=== PATIENT | female | born 1975 | race Two or more races ===

== ENCOUNTER 2017-08-21 05:32 | Inpatient (IN) | payer SELFPAY ==
[2017-08-21] MEDS: IV RINGERS,LACTATED 1000ML 1,000 ML IV ×6 (06:04→23:21)
[2017-08-21] MEDS ORDERED: ONDANSETRON PF 4 MG/2 ML VIAL. (07:25)
[2017-08-21] MEDS ORDERED: OXYTOCIN 10 UNIT/ML VIAL. ×3 (07:25→09:18)
[2017-08-21] MEDS ORDERED: MORPHINE PF 5 MG/10 ML VIAL. (07:25)
[2017-08-21] MEDS ORDERED: fentaNYL PF VIAL 100 MCG/2 ML VIAL (07:25)
[2017-08-21] MEDS ORDERED: FAMOTIDINE 20 MG/2 ML VIAL (07:25)
[2017-08-21] MEDS: CITRIC ACID/SODIUM CITRATE 30 ML SOLUTION. PO (07:35)
[2017-08-21 07:51] LABS: HEMATOCRIT 32.5 % (36.0-47.0); HEMOGLOBIN 11.2 g/dL (12.0-15.5); MEAN CORPUSCULAR HEMOGLOBIN 30 pg (25-35); MEAN CORPUSCULAR HGB CONC 34 g/dL (31-37); MEAN CORPUSCULAR VOLUME 86 fL (79-100); PLATELET COUNT 144 x10^3/uL (140-400); RED BLOOD COUNT 3.78 x10^6/uL (3.50-5.40); RED CELL DISTRIBUTION WIDTH 15.4 % (11.5-14.5); WHITE BLOOD COUNT 6.2 x10^3/uL (4.0-11.0)
[2017-08-21] MEDS ORDERED: METOCLOPRAMIDE HCL 10 MG/2 ML VIAL. (08:45)
[2017-08-21] MEDS ORDERED: PHENYLEPHRINE in 0.9% NACL PF 1 MG/10 ML SYRINGE. IV (09:21)
[2017-08-21] MEDS ORDERED: 0.9 % SODIUM CHLORIDE 10 ML DISP.SYRIN. IV (09:30)
[2017-08-21] MEDS ORDERED: diphenhydrAMINE ORAL ELIXIR 12.5 MG/5 ML ML PO (09:30)
[2017-08-21] MEDS ORDERED: ZOLPIDEM 5 MG TABLET. PO (09:30)
[2017-08-21] MEDS ORDERED: MMR per PROTOCOL. MC (09:30)
[2017-08-21] MEDS ORDERED: SIMETHICONE 80 MG TAB.CHEW PO (09:30)
[2017-08-21] MEDS ORDERED: MAG HYDROX/ALUMINUM HYD/SIMETH 30 ML ORAL.SUSP PO (09:30)
[2017-08-21] MEDS ORDERED: OXYTOCIN 30 UNIT/500 ML PREMIX 500 ML IV (09:30)
[2017-08-21] MEDS: KETOROLAC 30 MG/ML INJ. IV (11:10)
[2017-08-21] MEDS: ONDANSETRON PF 4 MG/2 ML VIAL. IV (12:23)
[2017-08-21] MEDS ORDERED: ceFAZolin SODIUM 1 GM in IV DEXTROSE 5% 50 ML IV (14:00)
[2017-08-21] MEDS: IBUPROFEN 800 MG TABLET. PO ×2 (14:00→21:32)
[2017-08-21] MEDS: ceFAZolin SODIUM IV Push 1 GM VIAL. IVP ×2 (14:03→21:33)
[2017-08-21] MEDS: FERROUS SULFATE 325 MG TABLET. PO (17:00)
[2017-08-21] MEDS: oxyCODONE/APAP 5/325 1 TAB TABLET PO (21:32)
[2017-08-21] MEDS: DOCUSATE SODIUM 100 MG CAPSULE. PO (21:32)
[2017-08-22 05:41] LABS: ADD MAN DIFF? NO
[2017-08-22 05:47] LABS: BASO % 0 % (0-3); EOS # 0.1 x10^3/uL (0.0-0.7); EOS % 1 % (0-3); HEMATOCRIT 27.6 % (36.0-47.0); HEMOGLOBIN 9.5 g/dL (12.0-15.5); LYMPH # 1.4 x10^3/uL (1.0-4.8); LYMPH % 21 % (24-48); MEAN CORPUSCULAR HEMOGLOBIN 30 pg (25-35); MEAN CORPUSCULAR HGB CONC 34 g/dL (31-37); MEAN CORPUSCULAR VOLUME 86 fL (79-100); MONO # 0.4 x10^3/uL (0.0-1.1); MONO % 7 % (0-9); NEUT # 4.8 x10^3uL (1.8-7.7); NEUT % 71 % (31-73); PLATELET COUNT 132 x10^3/uL (140-400); RED BLOOD COUNT 3.22 x10^6/uL (3.50-5.40); RED CELL DISTRIBUTION WIDTH 15.4 % (11.5-14.5); WHITE BLOOD COUNT 6.7 x10^3/uL (4.0-11.0)
[2017-08-22] MEDS: IBUPROFEN 800 MG TABLET. PO ×3 (06:38→22:00)
[2017-08-22] MEDS: oxyCODONE/APAP 5/325 1 TAB TABLET PO ×4 (06:38→18:26)
[2017-08-22] MEDS: ceFAZolin SODIUM IV Push 1 GM VIAL. IVP (06:48)
[2017-08-22 07:38] LABS: RPR Non Reactive (Non Reactive)
[2017-08-22] MEDS: DOCUSATE SODIUM 100 MG CAPSULE. PO ×2 (09:16→17:48)
[2017-08-22] MEDS: FERROUS SULFATE 325 MG TABLET. PO ×2 (09:16→17:48)
[2017-08-22] MEDS: IV RINGERS,LACTATED 1000ML 1,000 ML IV (23:00)
[2017-08-23] MEDS: oxyCODONE/APAP 5/325 1 TAB TABLET PO ×4 (00:16→17:33)
[2017-08-23] MEDS: IBUPROFEN 800 MG TABLET. PO ×3 (06:07→22:00)
[2017-08-23] MEDS: DOCUSATE SODIUM 100 MG CAPSULE. PO ×2 (08:53→17:33)
[2017-08-23] MEDS: FERROUS SULFATE 325 MG TABLET. PO ×2 (08:53→17:33)
[2017-08-23] MEDS: DIPHTH,PERTUSS(ACELL),TET TOX 0.5 ML DISP.SYRIN. VAX IM (10:50)
[2017-08-23] MEDS: MAGNESIUM HYDROXIDE 2,400 MG/30 ML ORAL.SUSP. PO (21:10)
[2017-08-24] MEDS: oxyCODONE/APAP 5/325 1 TAB TABLET PO ×3 (00:03→13:52)
[2017-08-24] MEDS: IBUPROFEN 800 MG TABLET. PO (04:57)
[2017-08-24] MEDS: DOCUSATE SODIUM 100 MG CAPSULE. PO ×2 (04:57→13:51)
[2017-08-24] MEDS: FERROUS SULFATE 325 MG TABLET. PO (13:51)
== END 2017-08-24 19:27 | disposition home or self-care (01) | DRG 766 ==
LOC: 3 SO LND 05:32 → 3 NORTH 08-24 15:48
PROVIDERS: Specialist
PROC: 10D00Z1 Extraction of Products of Conception, Low, Open Approach (ICD-10-PCS; principal; 2017-08-24)
DX: O75.89 Other specified complications of labor and delivery (principal); Z37.0 Single live birth; Z3A.40 40 weeks gestation of pregnancy
CPT/HCPCS: 36415; 85025; 85027; 86593; 86850; 86900; 86901; 90715; J0690; J1885; J2270; J2370; J2405; J2590; J2765; J3010; J7120; S0028